=== PATIENT | female | born 1975 | race African-American/Black ===

== ENCOUNTER 2019-09-01 16:02 | Emergency (ER) | payer OTHER ==
[~2019-09-01] VITALS: Ht 170.2 cm; Wt 95.0 kg
[2019-09-01] MEDS ORDERED: LORAZEPAM 0.5MG TABLET PO ONE (17:15)
[2019-09-01] MEDS ORDERED: ONDANSETRON 4MG ODT PO NR (18:45)
[2019-09-01] MEDS ORDERED: METOCLOPRAMIDE HCL 10MG TABLET PO ONE (19:45)
[2019-09-01 20:35] VITALS: BP 137/74
== END 2019-09-01 20:35 | disposition home or self-care (01) ==
LOC: ER 16:02
DX: Z03.818 Encounter for observation for suspected exposure to other biological agents ruled out (principal); F41.0 Panic disorder [episodic paroxysmal anxiety]; F12.10 Cannabis abuse, uncomplicated; F43.20 Adjustment disorder, unspecified; I10 Essential (primary) hypertension
CPT/HCPCS: 93005; 99284; C9803; J8597; Q0162; U0003; 87635